=== PATIENT | male | born 1990 | race Two or more races ===

== ENCOUNTER 2021-07-24 07:18 | Emergency (ER) | payer OTHER ==
[~2021-07-24] VITALS: Ht 165.1 cm; Wt 66.7 kg
[2021-07-24] MEDS ORDERED: ZITHROMAX500 MG PO (10:37)
[2021-07-24] MEDS ORDERED: KETO10TA2 PO (10:37)
== END 2021-07-24 10:57 | disposition home or self-care (01) ==
LOC: ER 07:18
DX: B34.9 Viral infection, unspecified (principal); Z20.822 Contact with and (suspected) exposure to COVID-19